=== PATIENT | male | born 1970 | race Caucasian/White ===

== ENCOUNTER 2016-12-08 13:05 | Emergency (ER) | payer MEDICAID ==
[2016-12-08 14:07] VITALS: BP 171/88
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
[2016-12-08] MEDS ORDERED: Ketorolac INJ* 60 MG/2 ML VIAL IM ONE (14:47)
== END 2016-12-08 15:21 | disposition home or self-care (01) ==
LOC: UCCORT 13:05
DX: G89.29 Other chronic pain (principal); M54.2 Cervicalgia; Z87.891 Personal history of nicotine dependence
CPT/HCPCS: 96372; 99202; G0463; J1885

== ENCOUNTER 2017-05-08 11:23 | Emergency (ER) | payer MEDICAID, OTHER ==
[2017-05-08 13:56] LABS: Hematocrit 40 % (42-52); Hemoglobin 13.4 g/dl (14.0-18.0); Mean Corpuscular HGB Conc 34 g/dl (31-36); Mean Corpuscular Hemoglobin 30 pg (27-31); Mean Corpuscular Volume 89 fL (80-94); Mean Platelet Volume 9 um3 (7.4-10.4); Red Blood Count 4.46 10^6/ul (4.0-5.4); Red Cell Distribution Width 13 % (10.5-15); White Blood Count 7.1 10^3/ul (3.5-10.8)
[2017-05-08 14:18] LABS: ALT 50 U/L (7-52); AST 34 U/L (13-39); Albumin 4.4 g/dL (3.2-5.2); Alkaline Phosphatase 53 U/L (34-104); Anion Gap 5 mmol/L (2-11); BUN/Creatinine Ratio 14.4 (8-20); Blood Urea Nitrogen 13 mg/dL (6-24); C Reactive Protein < 1.00 mg/L (< 5.00); CO2 Carbon Dioxide 29 mmol/L (22-32); Calcium 9.5 mg/dL (8.6-10.3); Chloride 103 mmol/L (101-111); EGFR African American 117.9 (>60); EGFR Non-African American 91.7 (>60); Globulin 2.9 g/dL (2-4); Glucose 95 mg/dL (70-100); Lipase 50 U/L (11.0-82.0); Potassium 4.1 mmol/L (3.5-5.0); Sodium 137 mmol/L (133-145); Total Protein 7.3 g/dL (6.4-8.9)
[2017-05-08] MEDS ORDERED: Iohexol 300* (CONTRAST) 10 ML SDV IV ONE (14:28)
--- NOTE | 2017-05-08 14:59 | RAD ---
Indication: Evaluate for small bowel obstruction. Contrast: Administered 111.0 ml of OMNIPAQUE 300 mg/ml CT of the abdomen and pelvis was performed after IV contrast administration. Coronal and sagittal images were obtained. Lung bases demonstrate no pleural fluid, nodules or masses. Heart is of normal size without evidence of pericardial effusion. The liver is normal in size. There are no focal lesions or intrahepatic duct dilatation noted. The gallbladder demonstrates no calcified gallstones. No pericholecystic fluid or wall thickening is identified. The pancreas demonstrates no mass or pancreatic ductal dilatation. The spleen is normal in size. No adrenal lesions are noted. The kidneys demonstrate symmetric nephrograms without focal lesions. No retroperitoneal lymphadenopathy is noted. No dilated loops of bowel are noted. The colon is filled with stool. CT of the pelvis demonstrates no retroperitoneal or pelvic lymphadenopathy. The urinary bladder is unremarkable although distended. No focal wall thickening is noted. No hernias are noted. IMPRESSION: There is fecal stasis. No abnormally dilated loops of small bowel are noted. Markedly distended urinary bladder is noted.
[2017-05-08 15:26] LABS: Urine Bilirubin Negative (Negative); Urine Glucose Negative (Negative); Urine Nitrite Negative (Negative)
[2017-05-08] MEDS ORDERED: Ciprofloxacin TAB* 500 MG PO ONE (15:36)
[2017-05-08] MEDS ORDERED: Tamsulosin CAP* 0.4 MG PO ONE (15:46)
[2017-05-08 16:34] VITALS: BP 137/82
[2017-05-08] MEDS ORDERED: Magnesium CITRATE* 300 ML BTL PO ONE (16:34)
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
== END 2017-05-08 16:44 | disposition home or self-care (01) ==
LOC: ED 11:23
DX: K59.00 Constipation, unspecified (principal); R33.9 Retention of urine, unspecified; N40.0 Benign prostatic hyperplasia without lower urinary tract symptoms; F41.8 Other specified anxiety disorders; Z87.891 Personal history of nicotine dependence
CPT/HCPCS: 36415; 74177; 80053; 81003; 83605; 83690; 85025; 86140; 96374; 99282; A9270-GY; Q9967